=== PATIENT | female | born 1940 | race Caucasian/White ===

== ENCOUNTER 2016-08-31 08:47 | Emergency (ER) | payer MEDICARE, OTHER ==
[~2016-08-31 08:47] MED LIST: CLIN150C14 PO
--- NOTE | 2016-08-31 09:25 | RAD ---
Pelvis with right hip, 3 views, 08/31/2016: History: Fall, right hip pain The bony structures are demineralized. No fracture or dislocation is identified. The hip joint spaces are well preserved. Femoral artery calcifications are present. A calcification projected over the lower pelvis near the midline may be due to a uterine fibroid or a bladder calculus. IMPRESSION: No acute bony abnormality is detected.
--- NOTE | 2016-08-31 09:46 | RAD ---
Examination: 2 views of the right femur History: History of fall in the shower, right leg pain Comparison: None available Findings: The right femoral head is within the acetabulum. There is no obvious acute fracture or dislocation identified. Moderate joint space loss identified in the right hip joint likely due to degeneration. Examination limited due to osseous demineralization. Impression: No obvious fracture lucency identified. However examination limited to osseous demineralization.
--- NOTE | 2016-08-31 10:43 | RAD ---
Examination: CT right hip without contrast. History: History of fall in the shower Comparison: None available Technique: Axial CT images of the right hip including the proximal right femur was performed without contrast with coronal and sagittal reformats were performed. PQRS Compliance Statement: One or more of the following individualized dose reduction techniques were utilized for this examination: 1. Automated exposure control 2. Adjustment of the mA and/or kV according to patient size 3. Use of iterative reconstruction technique Findings: The femoral head is within the acetabulum. There is mild joint space loss identified in the right hip joint likely due to degeneration. There is no evidence of fracture identified. Tiny subcentimeter sclerotic densities identified in the right iliac bone likely bone islands. The visualized appendix grossly appears unremarkable. Feces and gas noted in the visualized ascending colon. Impression: 1. No acute osseous findings. 2. Mild degenerative changes right hip joint.
[2016-08-31 11:01] VITALS: BP 146/80
--- NOTE | 2016-09-01 10:25 | ED.ADGEN ---
Past History Past Medical History: Sinusitis Past Surgical History: Other Alcohol Use: Occasionally Drug Use: None Adult General Chief Complaint Chief Complaint Right hip pain [facility] HPI Patient is a 76-year-old female presents with right lateral hip pain after slipping the shower landing on her right hip. Patient denies hitting her head, headache, or neck pain. She is not on anticoagulation therapy. Patient denies right hip pain on standing, but reports hip pain upon ambulating. No motor weakness or loss of sensation. No other acute symptoms or complaints. She is accompanied at bedside by her spouse. Review of Systems Review of Systems Review symptoms as per [facility] Allergies Allergies Allergies Coded Allergies Type Severity Reaction Last Updated Verified Penicillins Adverse Reaction Intermediate 01/20/16 Yes Physical Exam Physical Exam Constitutional: Well developed, well nourished, no acute distress, non-toxic appearance. HENT: Normocephalic, atraumatic, bilateral external ears normal, oropharynx moist. Eyes: PERRLA, EOMI, conjunctiva normal. Neck: Normal range of motion, no midline TTP. Cardiovascular:Heart rate regular rhythm, no murmur. Lungs & Thorax: Bilateral breath sounds clear to auscultation. Abdomen: Bowel sounds normal, soft, no tenderness. Skin: Warm, dry, no erythema, no rash. Back: No tenderness, no CVA tenderness. Extremities: Right lateral hip tenderness to palpation. No bruising or deformity , leg rotation or shortening. Neurologic: Alert and oriented X 3, lower extremity, no motor weakness or loss of sensation. Psychologic: Affect normal, judgement normal, mood normal. [] Current Patient Data Vital Signs Vital Signs Date Time Temp Pulse Resp B/P (MAP) Pulse Ox O2 Delivery O2 Flow Rate FiO2 08/31/16 11:01 79 18 146/80 (102) 99 Room Air 08/31/16 08:47 98.2 EKG EKG [] Radiology/Procedures Radiology/Procedures [Right hip/femur x-ray/right hip CT: No fracture per radiology report] Course & Med Decision Making Course & Med Decision Making Pertinent Labs and Imaging studies reviewed. (See chart for details). [No evidence of fracture imaging on x-rays CT imaging. The patient could benefit from an MRI on pain persists. I offered to transfer the patient to facility with the MRI. Patient has walker at home. She prefers to take medications and follow-up with her private orthopedic surgeon get by with the aid of her .] Final Impression Final Impression 1. R hip injury[] Problems: Dragon Disclaimer Dragon Disclaimer This electronic medical record was generated, in whole or in part, using a voice recognition dictation system. DONNA BURCH DO September 01, 2016 10:25
== END 2016-08-31 11:02 | disposition home or self-care (01) ==
LOC: ER 08:47
DX: S79.911A Unspecified injury of right hip, initial encounter (principal); Z88.0 Allergy status to penicillin; W01.0XXA Fall on same level from slipping, tripping and stumbling without subsequent striking against object, initial encounter; Y93.E1 Activity, personal bathing and showering; Y99.8 Other external cause status; Y92.89 Other specified places as the place of occurrence of the external cause
CPT/HCPCS: 73502; 73552; 73700; 99284-25